=== PATIENT | female | born 1940 | race Caucasian/White ===

== ENCOUNTER 2016-10-22 20:31 | Emergency (ER) | payer MEDICARE, BC ==
[2016-10-22 21:25] LABS: BLOOD UREA NITROGEN 18 mg/dL (7-18); CARBON DIOXIDE 25 mmol/L (21-32); CREATININE 0.7 mg/dL (0.6-1.3); GLUCOSE,RANDOM 145 mg/dL (70-99); POTASSIUM 3.8 mmol/L (3.5-5.1); SODIUM 137 mmol/L (136-145)
== END 2016-10-22 22:10 | disposition home or self-care (01) ==
LOC: ER 20:31
PROVIDERS: General Practice
DX: M79.652 Pain in left thigh (principal); Z79.899 Other long term (current) drug therapy
CPT/HCPCS: 36415; 80048; 85379; 99283